=== PATIENT | male | born 1965 | race Caucasian/White ===

== ENCOUNTER 2022-03-12 10:27 | Emergency (ER) | payer OTHER, SELFPAY ==
--- NOTE | 2022-03-12 10:40 | XRR_ITS ---
PROCEDURE INFORMATION: Exam: XR Left Knee Exam date and time: 03/12/2022 11:21 AM Age: 56 years old Clinical indication: Left; Prior surgery; Patient HX: History--lt knee pain on posterior side. Had miniscule surgery over 20 yrs ago; Additional info: Left knee pain TECHNIQUE: Imaging protocol: Radiologic exam of the Left knee. Views: 3 views. COMPARISON: No relevant prior studies available. FINDINGS: Bones/joints: A joint effusion is present with fluid in the suprapatellar bursa. No fracture or other acute bone or joint abnormality. Chronic degenerative changes are present with osteophytes on the patella, femoral condyles and tibial plateau. There is mild joint space narrowing. Soft tissues: Normal. XR/XR knee LT 3V* [id number] IMPRESSION: 1. Joint effusion. 2. Chronic degenerative joint disease. No acute bony abnormality.
[2022-03-12 11:43] VITALS: BP 131/84; PULSE 107; RESP 16; TEMP 36.7; O2SAT 92
--- NOTE | 2022-03-12 11:57 | USCV_ITS ---
Tomy Stanley Age: 56 Gender: M : 1965 Exam Date: 03/12/2022 12:24 Ordering Phys: Jose Ramon Brar Technologist: NEAL Exam Location: [facility] [place] Indication: LLE PAIN AND SWELLING HISTORY: Lower extremity swelling. Lower extremity pain. PROCEDURES: Venous duplex imaging was performed in only the left lower extremity. The following venous structures were evaluated: common femoral vein, profunda vein, proximal portion of the greater saphenous vein, superficial femoral vein, and the popliteal vein. In addition, the posterior tibial and peroneal trunk were evaluated. Serial compression, augmentation maneuvers, and spectral Doppler flow evaluation were performed. FINDINGS: No evidence of DVT seen in any vessel visualized at this time. Examination was technically limited due to body habitus. Complex area seen post to Left Knee 4.2 x 5.5x 3.5cm CONCLUSIONS No evidence of left lower extremity DVT. Left popliteal cyst with internal debris 4.2 x 5.5 x 3.5cm Yanick Rizzo MD (Electronically Signed) Final Date: 12 March 2022 13:02 S
--- NOTE | 2022-03-12 12:30 | ED_ITS ---
HPI - Extremity Problem General: Chief complaint: Extremity Injury, Lower Stated complaint: left knee pain Time Seen by Provider: 03/12/22 11:30 History of Present Illness: Patient is a 56-year-old male comes to the ED with left knee pain. Patient has a history of chronic left knee pain and has had laparoscopic surgery on knee in the past. Patient says his pain started approximately 4 months ago when he was moving from [place] here to [facility] in November. His left knee pain never got any better and continued to progress. He takes some anti-inflammatory pain meds at home and they have not helped. Denies any acute fall or trauma to cause pain. He is also complaining of having some left calf pain and tenderness for the past couple weeks as well. Denies any chest pain, shortness of breath or hemoptysis. He is not on any blood thinners. Associated symptoms: Deny chest pain, fever(s) or rash Review of Systems Const: Denies: fever(s), chills or fatigue Eyes: Denies: change in vision or eye discomfort ENMT: Denies: throat pain, odynophagia, nasal discharge or nasal congestion Card: Denies: chest pain, palpitations, edema, swelling of feet/ankles, dyspnea on exertion or orthopnea Resp: Denies: dyspnea, productive cough or non-productive cough GI: Denies: abdominal pain, nausea, vomiting, diarrhea, constipation or hematochezia : Denies: flank pain, difficulty urinating, dysuria or hematuria Musc: Reports: extremity pain (Left knee and left lower leg pain); Denies: neck pain, back pain or extremity swelling Skin/Breast: Denies: rash or new lesions Neuro: Denies: headache(s), numbness in extremities or weakness in extremities [facility] ED PFSH: Medical History No pertinent family history Surgical History History of knee surgery Physical Exam Const: COMMON NORMALS: no acute distress, patient oriented x3 and alert HENMT: COMMON NORMALS: normocephalic HEAD & SCALP: normocephalic MOUTH: Normal oral and palatal mucosa present THROAT: posterior oropharynx normal and uvula midline Neck/C-Spine: COMMON NORMALS: supple GENERAL: Yes normal visual inspection Resp: COMMON NORMALS: normal respiratory effort, No retractions, No use of accessory muscles and clear to auscultation bilaterally AUSCULTATION: clear to auscultation bilaterally Cardio: COMMON NORMALS: regular rate, regular rhythm, S1 normal heart sound present, S2 normal heart sound present, No gallops present (Cardio), No clicks present (Cardio), No murmurs present (Cardio) and Peripheral pulses 2+ throughout RATE: regular rate RHYTHM: regular rhythm HEART SOUNDS: S1 normal heart sound present and S2 normal heart sound present PERIPHERAL PULSES: Peripheral pulses 2+ throughout GI: COMMON NORMALS: Normal to inspection, nondistended, normoactive bowel sounds present, Soft to palpation, non-tender and no masses PALPATION: Yes Soft to palpation : COMMON NORMALS: Yes no CVA tenderness BLADDER/KIDNEY EXAM: Yes no CVA tenderness Back/Pelvis: COMMON NORMALS: no CVA tenderness Extremity: COMMON NORMALS: normal to inspection NARRATIVE EXTREMITY EXAM: Left knee?no visible deformity or ecchymosis seen. Limited range of motion due to pain. GENERAL: Yes calf tenderness (Left calf tenderness) Neuro: COMMON NORMALS: patient oriented x3 SENSORIUM/ORIENTATION: Yes alert GAIT: Yes Normal gait present Skin: GENERAL SKIN EXAM: dry skin Course Vital Signs: Vital signs: Vital Signs Temperature 98.0 F 03/12/22 11:43 Pulse Rate 107 H 03/12/22 11:43 Respiratory Rate 16 03/12/22 11:43 Blood Pressure 131/84 03/12/22 11:43 Pulse Oximetry 92 03/12/22 11:43 Oxygen Delivery Me thod 03/12/22 11:43 MDM - Extremity (Nontraumatic) Medical Decision Making Patient is a 56-year-old male comes to the ED with left knee pain. Patient has a history of chronic left knee pain and has had laparoscopic surgery on knee in the past. Patient says his pain started approximately 4 months ago when he was moving from [place] here to [place] back in November. Vitals are stable. Exam of patient does show some limited range of motion due to pain in the left knee but no other acute findings. Rest of exam is benign. X-ray of left knee shows joint effusion and some chronic degenerative joint disease. No acute bony abnormality. Ultrasound venous duplex showed no DVT, but noted Rosales's cyst. Patient was discharged home with some crutches and I placed an order with case management for patient be referred to Ortho for left knee pain and joint effusion. Return to ED precautions given. Patient understood and agreed with plan. Lab Data Radiology Impressions Knee X-Ray 03/12/22 10:40 IMPRESSION: 1. Joint effusion. 2. Chronic degenerative joint disease. No acute bony abnormality. Discharge Plan Discharge Patient Disposition: Home Clinical Impression: Effusion of knee joint, left Osteoarthritis of left knee Qualifiers: Osteoarthritis type: primary Qualified Code(s): M17.12 - Unilateral primary osteoarthritis, left knee Rosales's cyst of knee Qualifiers: Laterality: left Qualified Code(s): M71.22 - Synovial cyst of popliteal space [Rosales], left knee Condition: Stable Discharge Orders: Discharge ED (Routine); Ordered 03/12/22 Ordered By: Jose Ramon Brar Discharge Diet: Regular Discharge Activity: Use walker/crutches as instructed Patient Instructions: Rosales Cyst (ED), Knee Pain (ED) Activity Restrictions/Additional Instructions: Follow-up with medical provider as directed. Case management should be contacted in the next several days to set an appointment up with Ortho for follow-up on knee pain. Continue taking home medications as previously prescribed. Use crutches to help with ambulation. Return to the ER or your medical provider if condition worsens. Please read and understand discharge instructions. Thank you for choosing [facility] for your healthcare needs today. Please realize this is an emergency room and that we are providing you with a medical screening exam and this may not be complete and all inclusive of all the testing and or work up that you may need to determine your ailment or severity of your illness. It is very important that you follow up as instructed or that you return to the Emergency Department should you have concerns or if your condition changes or worsens in any way. Coding Level of Care Code ED Perfect Binder Setter for Romario Reid Exam Comprehensive
--- NOTE | 2022-03-12 13:02 | PC.SOCIAL ---
Addendum entered by Nita Riddle 05/20/22 16:01: Patient had a follow up appointment scheduled with ortho - patient did attend appointment. Addendum entered by Nita Riddle 03/15/22 13:04: Patient has a follow up appointment scheduled for Saturday, April 02, 2022 at 11:00 with Jamie at ortho. Clinic will call patient with appointment information. Original Note: Ortho Referral Consult received for orthopedics referral for left knee pain with joint effusion. Referral sent to [facility] orthopedics front end technician for scheduling. Office will call patient with appointment date/time.
== END 2022-03-12 13:35 | disposition home or self-care (01) ==
PROVIDERS: Emergency Provider Physician Assistant
DX: M17.12 Unilateral primary osteoarthritis, left knee (principal); M71.22 Synovial cyst of popliteal space [Baker], left knee; M25.462 Effusion, left knee
CPT/HCPCS: 73562; 93971; 99284; E0114

== ENCOUNTER → 2022-04-02 10:48 | Outpatient (BNVA) | payer OTHER, SELFPAY | PROVIDERS: Referring Provider Physician Assistant; Visit Provider Nurse Practitioner Family | DX: G89.29 Other chronic pain (principal); M25.562 Pain in left knee | CPT/HCPCS: 73560; 73565; 99214 ==

== ENCOUNTER → 2022-06-06 10:32 | Outpatient (BNVA) | payer OTHER, SELFPAY | PROVIDERS: Visit Provider Internal Medicine Pulmonary Disease | DX: J44.9 Chronic obstructive pulmonary disease, unspecified (principal); R06.09 Other forms of dyspnea; R06.02 Shortness of breath; Z87.891 Personal history of nicotine dependence | CPT/HCPCS: 36415; 80053; 82785; 85025; 85651; 86003; 86140; 99204 ==

== ENCOUNTER 2022-06-27 08:51 | Outpatient (CLI) | payer OTHER, SELFPAY ==
--- NOTE | 2022-06-27 | CT_ITS ---
WS: [id number] LDCT LUNG CANCER SCREENING HISTORY: NICOTINE DEPENDENCE TECHNIQUE: Axial imaging performed from the apices to 1 cm below the costophrenic angles. Coronal and sagittal reformats are submitted with axial MIP series. All CT scans at [facility] use at least one of these dose optimization techniques: automated exposure control; mA and/or kV adjustment per patient size (includes targeted exams where dose is matched to clinical indication); or iterativ e reconstruction. DLP: 77.91 mGy.cm DIvol: Mean CTDIvol: 1.60 (mGy) COMPARISON: None available. Diagnostic quality: Satisfactory Lung Nodules: No pulmonary nodules or endobronchial lesions. Lungs: No abnormality. Heart: Negative. Other findings: Mild atherosclerosis aorta. Small benign appearing mediastinal and hilar lymph nodes. CT/CT lung screening [id number] IMPRESSION: LUNG-RADS: 1-Negative FOLLOW UP: 12 Month: Continue annual screening with LDCT OTHER FINDINGS (S MODIFIER): None.
== END 2022-06-27 08:52 | disposition home or self-care (01) ==
PROVIDERS: Visit Provider Internal Medicine Pulmonary Disease
DX: Z12.2 Encounter for screening for malignant neoplasm of respiratory organs (principal); F17.210 Nicotine dependence, cigarettes, uncomplicated; R06.09 Other forms of dyspnea; J44.9 Chronic obstructive pulmonary disease, unspecified
CPT/HCPCS: 71271; 94060; 94618; 94729; J7613